=== PATIENT | male | born 1955 | race Caucasian/White ===

== ENCOUNTER 2022-02-25 13:12 | Emergency (ER) | payer MEDICARE, SELFPAY ==
[2022-02-25] VITALS (9 sets, daily range): BP systolic 144–163; BP diastolic 70–85; PULSE 61–76; RESP 32; TEMP 36.4; O2SAT 91–100; BMI 28.0
--- NOTE | 2022-02-25 13:51 | DI.CT.S_ITS ---
PROCEDURE: CT KIDNEY URETER BLADDER (KUB) INDICATIONS: left flank/testicle pain, likely kidney stone TECHNIQUE: Axial sections were acquired from the lung bases to the pubic symphysis. Coronal and sagittal reformats were performed. For radiation dose reduction, the following was used: automated exposure control, adjustment of mA and/or kV according to patient size. COMPARISON: None. FINDINGS: Image quality: Excellent Lower chest: Small hiatal hernia. Small amount of esophageal suspected reflux. Solid organs: Possible steatosis of the liver. No pathologic biliary ductal dilation. Gallbladder is unremarkable. Pancreas is unremarkable. No splenomegaly. No adrenal nodules. No right hydronephrosis. There is an obstructing stone in the left distal ureter adjacent to the UVJ measuring 5 x 4 mm. This stone is calcified. There is moderate upstream hydronephrosis and perinephric periureteral stranding. Vessels and lymph nodes: No abdominal aortic aneurysm or pathologic adenopathy. Bowel and peritoneum: No pathologic ascites or bowel obstruction. There are colonic diverticula. Suspected chronic wall thickening of the sigmoid colon, versus colitis. Body wall: Unremarkable small fat containing umbilical hernia. Pelvis: Prostatomegaly, not well evaluated. Bones: Scattered degenerative changes. No acute or suspicious osseous abnormality. IMPRESSION: Obstructing left distal ureter stone adjacent to the UVJ causing moderate hydronephrosis. Suspected chronic wall thickening related to diverticulosis of the sigmoid colon. Differential includes colitis. Correlate with symptoms and any history of screening colonoscopy. Other findings as above. Dictated by: Erasmo Christensen M.D. on 02/25/2022 at 14:55 Approved by: Erasmo Christensen M.D. on 02/25/2022 at 14:59
[2022-02-25 13:55] LABS: Add Manual Diff / Slide Review NO; Basophils Absolute Auto 100 /uL (0-100); Basophils Percent Auto 0.7 % (0-2); Eosinophils Absolute Auto 200 /uL (0-450); Eosinophils Percent Auto 1.9 % (2-4); Hematocrit 43.2 % (41-53); Hemoglobin 14.7 g/dL (13.5-17.5); Lymphocytes Absolute Auto 2800 /uL (1100-4500); Lymphocytes Percent Auto 34.5 % (25-40); Mean Corpuscular HGB Conc 34.1 % (30-36); Mean Corpuscular Hemoglobin 28.2 PG (26-34); Mean Corpuscular Volume 82.8 fL (80-100); Monocytes Absolute Auto 800 /uL (0-900); Monocytes Percent Auto 9.4 % (3-14); Neutrophils Absolute Auto 4300 /uL (1500-7000); Neutrophils Percent Auto 53.5 % (50-75); Platelet Count 325 X10^3/uL (150-400); Red Blood Cell Count 5.22 X10^6/uL (4.5-5.9); Red Cell Distribution Width 13.5 % (11.6-14.8); White Blood Cell Count 8.1 X10^3/uL (4.5-11.0)
[2022-02-25] MEDS: HYDROMORPHONE 0.5 MG INJ IV ×2 (14:00→14:37)
[2022-02-25] MEDS: ONDANSETRON 4 MG/2 ML INJ IV (14:00)
[2022-02-25] MEDS: KETOROLAC 30 MG/ML VIAL 15 MG IV (14:00)
[2022-02-25] MEDS: SODIUM CHLORIDE 0.9% 1,000 ML 1000 ML IV (14:01)
[2022-02-25 14:06] LABS: Alanine Aminotransferase 34 IU/L (<50); Albumin 4.4 g/dL (3.5-5.0); Albumin Globulin Ratio 1.4 (1.0-2.8); Alkaline Phosphatase 50 U/L (38-126); Aspartate Aminotransferase 26 IU/L (17-59); BUN Creatinine Ratio 13.9 (6-22); Bilirubin Total 0.7 mg/dL (0.2-1.3); Blood Urea Nitrogen 15 mg/dL (9-20); Calcium 9.7 mg/dL (8.4-10.2); Carbon Dioxide 23 mmol/L (22-32); Chloride 104 mmol/L (98-107); Estimated Glomerular Filt Rate > 60 mL/min (>60); Globulin 3.2 g/dL (1.7-4.1); Glucose 115 mg/dL (80-110); HEMOLYSIS < 15 (0-50); Lipase 177 U/L (23-300); Potassium 4.3 mmol/L (3.4-5.1); Sodium 138 mmol/L (137-145); Total Protein 7.6 g/dL (6.3-8.2)
--- NOTE | 2022-02-25 15:31 | ED_ITS ---
HPI - General Adult General Chief complaint: Abdominal Pain Stated complaint: sent by [facility] sharp pain lower LT quad Time Seen by Provider: 02/25/22 13:30 Mode of arrival: Family Vehicle History of Present Illness HPI narrative: 66-year-old gentleman with no significant medical history is traveling [place] country in his motor home with his . His is currently in [place] looking for their new condo when he developed severe left flank, lower quadrant and testicular pain. He was able to drive himself to the hospital and is in obvious severe pain. He is had some episodes of vomiting and retching secondary to the pain. Describes the onset as severe sharp and stabbing. Had no fevers, cough, chills, palpitations, diarrhea. No headaches recently does note years ago he had a kidney stone and is wondering if this may be the same. Related Data Previous Rx's Medication Instructions Recorded oxycodone-acetaminophen 5 mg-325 1 tab PO Q6H PRN pain #14 tabs 02/25/22 mg tablet tamsulosin 0.4 mg capsule 0.4 mg PO DAILY #30 caps 02/25/22 Allergies Allergy/AdvReac Type Severity Reaction Status Date / Time No Known Drug Allergies Allergy Verified 02/25/22 13:36 Review of Systems Review of Systems Narrative: Remainder of complete review of systems is otherwise unremarkable except for that included in the HPI. Patient History Medical History (Updated 02/25/22 @ 15:54 by Maria Eugenia Mcdaniel MD) Kidney stones Social History Smoking Status: Never smoker Smoking Status: Never smoker Substance Use Type: does not use Exam Initial Vital Signs Initial Vital Signs: Vital Signs Temperature 97.6 F 02/25/22 13:35 Pulse Rate 71 02/25/22 13:35 Respiratory Rate 32 H 02/25/22 13:35 Blood Pressure 150/78 H 02/25/22 13:35 Pulse Oximetry 100 02/25/22 13:35 Oxygen Delivery Method 02/25/22 13:35 General: Healthy appearing, in severe pain, mildly diaphoretic but Able to give a complete and coherent history. Well-nourished well-developed HEENT: Moist mucous membranes, normal sclera with reactive pupils, Respiratory: Lungs are clear to auscultation, no wheezing no rales no rhonchi. Full and symmetrical air movement Cardiac: Regular rate and rhythm no murmurs no bruits Abdomen: Soft, mild left flank, left lower quadrant and left testicular pain. No rebound or guarding. No masses or reproducible pain in the testicle. No rashes over the skin. Skin: Warm and dry, no rashes Neurologic: Grossly neurologically intact with no obvious asymmetries or abnor malities Extremities: No trauma, well perfused Psych: Cooperative, appropriate insight and affect Course Orders Ordered: ED Orders 02/25/22 13:37 EKG-12 Lead Stat 02/25/22 13:44 Complete Blood Count AUTO DIFF Stat Comprehensive Metabolic Panel Stat Lipase Stat 02/25/22 13:51 CT kidney ureter bladder (KUB) Stat Hydromorphone HCl (Hydromorphone 0.5 Mg Inj) 0.5 mg IV Q15MIN PRN PRN Reason: Pain, Last Admin: 02/25/22 14:37 Dose: 0.5 mg Documented By: Admin: 02/25/22 14:00 Dose: 0.5 mg Documented By: ROBBIN Discontinued Medications Sodium Chloride (Normal Saline 0.9%) 1,000 mls @ 1,000 mls/hr IV BOLUS ONE Stop: 02/25/22 14:49 Last Admin: 02/25/22 14:01 Dose: 1,000 mls/hr Documented By: ROBBIN Ketorolac Tromethamine (Ketorolac 30 Mg/Ml Vial) 15 mg IV NOW ONE Stop: 02/25/22 13:51 Last Admin: 02/25/22 14:00 Dose: 15 mg Documented By: ROBBIN Ondansetron HCl (Ondansetron 4 Mg/2 Ml Inj) 4 mg IV NOW ONE Stop: 02/25/22 13:51 Last Admin: 02/25/22 14:00 Dose: 4 mg Documented By: ROBBIN Oxycodone/Acetaminophen (Oxycodone/Acetaminophen 5/325 Tablet) 1 tab PO NOW ONE Stop: 02/25/22 15:42 Oxycodone/Acetaminophen (Oxycodone/Apap 5/325 Prepack) 1 bottle MISC SEEINSTR ONE Stop: 02/25/22 15:42 Tamsulosin HCl (Tamsulosin 0.4 Mg Capsule) 0.4 mg PO NOW ONE Stop: 02/25/22 15:43 Vital Signs Vital signs: Vital Signs - 8 hr 02/25/22 13:35 02/25/22 14:09 Temperature 97.6 F Pulse Rate 71 76 Respiratory Rate 32 H Blood Pressure 150/78 H Pulse Oximetry 100 99 Oxygen Delivery Method Room Air Room Air Medical Decision Making Lab Data Result diagrams: 02/25/22 13:44 02/25/22 13:44 Labs: Lab Results 02/25/22 02/25/22 Range/Units 13:44 13:44 WBC 8.1 (4.5-11.0) X10^3/uL RBC 5.22 (4.5-5.9) X10^6/uL Hgb 14.7 (13.5-17.5) g/dL Hct 43.2 (41-53) % MCV 82.8 (80-100) fL MCH 28.2 (26-34) PG MCHC 34.1 (30-36) % RDW 13.5 (11.6-14.8) % Plt Count 325 (150-400) X10^3/uL Neut % (Auto) 53.5 (50-75) % Lymph % (Auto) 34.5 (25-40) % [place] % (Auto) 9.4 (3-14) % Eos % (Auto) 1.9 L (2-4) % Baso % (Auto) 0.7 (0-2) % Neut # (Auto) 4300 (6772-7620) /uL Lymph # (Auto) 2800 (9316-2192) /uL [place] # (Auto) 800 (0-900) /uL Eos # (Auto) 200 (0-450) /uL Baso # (Auto) 100 (0-100) /uL Sodium 138 (137-145) mmol/L Potassium 4.3 (3.4-5.1) mmol/L Chloride 104 (98-107) mmol/L Carbon Dioxide 23 (22-32) mmol/L BUN 15 (9-20) mg/dL Creatinine 1.08 (0.66-1.25) mg/dL Estimated GFR > 60 (>60) mL/min BUN/Creatinine Ratio 13.9 (6-22) Glucose 115 H (80-110) mg/dL Calcium 9.7 (8.4-10.2) mg/dL Total Bilirubin 0.7 (0.2-1.3) mg/dL AST 26 (17-59) IU/L ALT 34 (<50) IU/L Alkaline Phosphatase 50 (38-126) U/L Total Protein 7.6 (6.3-8.2) g/dL Albumin 4.4 (3.5-5.0) g/dL Globulin 3.2 (1.7-4.1) g/dL Albumin/Globulin Ratio 1.4 (1.0-2.8) Lipase 177 (23-300) U/L Imaging Data CT scan - abdomen/pelvis: Radiologist's Impression: FINDINGS:? Image quality:? Excellent ? Lower chest:? Small hiatal hernia.? Small amount of esophageal suspected reflux. ? Solid organs:? Possible steatosis of the liver.? No pathologic biliary ductal dilation.? Gallbladder is unremarkable.? Pancreas is unremarkable.? No splenomegaly.? No adrenal nodules.? No right hydronephrosis. ? There is an obstructing stone in the left distal ureter adjacent to the UVJ measuring 5 x 4 mm.? This stone is calcified.? There is moderate upstream hydronephrosis and perinephric periureteral stranding. ? Vessels and lymph nodes:? No abdominal aortic aneurysm or pathologic adenopathy. ? Bowel and peritoneum:? No pathologic ascites or bowel obstruction.? There are colonic diverticula.? Suspected chronic wall thickening of the sigmoid colon, versus colitis. ? Body wall:? Unremarkable small fat containing umbilical hernia. ? Pelvis:? Prostatomegaly, not well evaluated. ? Bones:? Scattered degenerative changes.? No acute or suspicious osseous abnormality. ? IMPRESSION:? Obstructing left distal ureter stone adjacent to the UVJ causing moderate hydronephrosis. ? Suspected chronic wall thickening related to diverticulosis of the sigmoid colon.? Differential includes colitis.? Correlate with symptoms and any history of screening colonoscopy. Other findings as above. ? Dictated by: Erasmo Christensen M.D. on 02/25/2022 at 14:55 ? ? [facility] Narrative Medical decision making narrative: 66-year-old gentleman with acute onset left sided flank groin testicular pain with CT scan showing an obstructing stone in the left distal ureter adjacent to the UVJ measuring 5 x 4 mm.? Been given fluid, Toradol, single dose of Dilaudid, Zofran and Flomax. Pain is moderately controlled at this point. Be discharged home with a prescription for Flomax and Percocet. Suspect that he will pass this stone that is at the UVJ but if it does not pass he is given information to contact Urology. Anticipated course of resolution as well as complications reviewed with him. At this time he is safe for discharge home Discharge Plan Departure Patient Disposition: Home Clinical Impression: Kidney stone on left side Instructions: DI for Kidney Stones Activity Restrictions/Additional Instructions: Thank you for coming in today You have a fairly good size kidney stone that has worked its way all the way down from your kidney and is almost into her bladder. This is the source of your severe pain today. In the emergency department you are given fluids, Toradol (similar to ibuprofen but IV), IV narcotic and Flomax. Flomax can help expand the tissue enough that the stone will pass a bit more easily. You need to keep well hydrated, there is no specific preventive anything to recommend at this time. Using 400 mg of ibuprofen (2 [id number] pills) and 1 Tylenol every 6 hours can be very helpful in controlling pain. For severe pain using 400 mg of ibuprofen and 1 Percocet will be helpful. I am giving you a prescription for both Percocet as well as Flomax. Please continue the Flomax until you pass the stone. Percocet is a narcotic and will make you constipated. Please use laxatives or stool softeners to prevent this. If your pain is again as severe as when he came in, you will likely need to return to the emergency department. If you have not passed the stone within the next few days, I am going to ask you to follow-up with our Urology Clinic. Please call to schedule an appointment at [phone] If you find that you are getting worse or develop any new symptoms, please feel free to return to the emergency department for further evaluation. Prescriptions: New oxycodone-acetaminophen 5-325 mg tablet 1 tab PO Q6H PRN (Reason: pain) Qty: 14 0RF tamsulosin 0.4 mg capsule 0.4 mg PO DAILY Qty: 30 0RF Referrals: Miscellaneous,Doctor, MD [Primary Care Provider] -
[2022-02-25] MEDS: OXYCODONE/ACETAMINOPHEN 5/325 TABLET 1 TAB PO (15:58)
[2022-02-25] MEDS: OXYCODONE/APAP 5/325 PREPACK 1 BOTTLE MISC (15:58)
[2022-02-25] MEDS: TAMSULOSIN 0.4 MG CAPSULE PO (15:58)
== END 2022-02-25 16:30 | disposition home or self-care (01) ==
PROVIDERS: Emergency Provider Emergency Medicine
DX: N20.0 Calculus of kidney (principal)
CPT/HCPCS: 36415; 74176; 80053; 83690; 85025; 96361; 96374; 96375; 99284; J1170; J1885; J2405

== ENCOUNTER → 2022-03-06 08:22 | Outpatient (CLI) | payer MEDICARE, SELFPAY ==
--- NOTE | 2022-03-06 08:24 | DI.RAD.S_ITS ---
PROCEDURE: XR KUB INDICATIONS: Kidney stone TECHNIQUE: One view of the abdomen acquired. COMPARISON: [facility], CT, CT KIDNEY URETER BLADDER (KUB), 02/25/2022, 13:57. FINDINGS: Surgical changes and devices: None. Bowel: Bowel gas pattern is normal. Soft tissues: Oval 7 mm calcification projecting over the left pelvis could represent the previously seen distal left ureteral calculus on CT KUB from 02/25/2022. Additional phleboliths are seen in the pelvis. Visualized solid organ contours appear normal in size. Bones: No suspicious bony lesions. IMPRESSION: Calcification projecting over the left pelvis could represent the previously seen distal left ureteral calculus. Approved by: Juvencio Irvin M.D. on 03/06/2022 at 16:47
== END ==
PROVIDERS: Referring Provider Urology; Visit Provider Urology
DX: N20.0 Calculus of kidney (principal)
CPT/HCPCS: 74018; 81002; 99214

== ENCOUNTER → 2022-03-15 14:20 | Outpatient (CLI) | payer MEDICARE, SELFPAY ==
--- NOTE | 2022-03-15 14:21 | DI.RAD.S_ITS ---
PROCEDURE: XR KUB INDICATIONS: Kidney stone TECHNIQUE: One view of the abdomen acquired. COMPARISON: [facility], CT, CT KIDNEY URETER BLADDER (KUB), 02/25/2022, 13:57. [facility], CR, XR KUB, 03/06/2022, 8:24. FINDINGS: Surgical changes and devices: None. Bowel: Bowel gas pattern is normal. Soft tissues: No suspicious abdominal calcifications. Visualized solid organ contours appear normal in size. 7 calcification again seen projected over the left hemipelvis unchanged from prior examination. Bones: No suspicious bony lesions. IMPRESSION: 7 mm left hemipelvic calcification redemonstrated which could represent the distal left ureteral stone seen on prior CT KUB. Dictated by: Glenn LEOS Interpreted: Belen Edwards MD on 03/15/2022 at 14:35 Approved by: Obed Murphy M.D. on 03/19/2022 at 12:27
== END ==
PROVIDERS: Referring Provider Urology; Visit Provider Urology
DX: N20.0 Calculus of kidney (principal)
CPT/HCPCS: 74018

== ENCOUNTER → 2022-03-26 13:22 | Outpatient (CLI) | payer MEDICARE, SELFPAY ==
[2022-03-26 14:20] LABS: COVID19 -Nasal RAPID Negative (Negative)
== END ==
PROVIDERS: Visit Provider Urology
DX: Z20.822 Contact with and (suspected) exposure to COVID-19 (principal)
CPT/HCPCS: 87635; C9803

== ENCOUNTER 2022-03-27 14:15 | Day surgery (SDC) | payer MEDICARE, SELFPAY ==
[2022-03-23 10:40] VITALS: BMI 27.8
[2022-03-27] VITALS (10 sets, daily range): BP systolic 123–158; BP diastolic 76–98; PULSE 79–94; RESP 11–16; TEMP 36.1–36.6; O2SAT 92–100; BMI 27.8
--- NOTE | 2022-03-27 | DI.RAD.S_ITS ---
PROCEDURE: XR ABDOMEN 1V INDICATIONS: Left stone and stent placement. TECHNIQUE: 7 intra-operative images acquired by the Urology service. COMPARISON: [facility], CR, XR KUB, 03/15/2022, 15:26. FINDINGS: Multiple intraoperative fluoroscopic images demonstrate placement of double-J left ureteral stent which appears to be appropriately positioned. Oval distal ureteral stone is again noted. IMPRESSION: Fluoroscopic support for left double-J ureteral stent placement. Please see separate procedure note for further details. Dictated by: Kyle Temple M.D. on 03/28/2022 at 10:29 Approved by: Kyle Temple M.D. on 03/28/2022 at 10:31
[2022-03-27] MEDS: LACTATED RINGERS 1,000 ML 21 ML IV (15:09)
--- NOTE | 2022-03-27 15:23 | PM.PREOP ---
Pre-operative Note COVID-19 COVID-19 status: Negative Result date/Date tested (Pos, Neg/Pending): 03/26/22 Criteria for continued procedure: Delay expected to result in less-positive ultimate med/surg outcome and Non-surgical alternatives not available or appropriate per current SOC Interval Note History & Physical reviewed/Exam performed by Physician: Yes Changes to H&P: No
[2022-03-27] MEDS: CEFAZOLIN 2 GM/100 ML PREMIX 100 ML IV (16:02)
--- NOTE | 2022-03-27 16:19 | SUR.OPER ---
Lithotomy on padded OR bed, head on pillow, arms secured on padded arm boards at <90 degrees abduction. Legs secured in padded yellow fins stirrups.
[2022-03-27] MEDS: IOPAMIDOL 50 ML VIAL 10 ML INTRAURETH (16:23)
--- NOTE | 2022-03-27 17:17 | PM.OP.1 ---
Procedure & Clinicians Procedure: Left ureteroscopy with laser lithotripsy and stone basketing as well as left ureteral stent placement. Same procedure as scheduled: Yes Indications: This 66-year-old male presented with complaints of left renal colic. He was found to have a distal 6-7 mm ureteral calculus. He is failed to pass this and presents at this time for treatment of his stone. Interestingly the patient has been pain-free since the 1st episode. Surgeon: Benji Muller Click Yes if Unassisted: Yes Anesthesia Type: General Operative Notes Findings: Findings: Urethra is normal along its length with normal mucosa of the sphincter as well coapted. The prostate shows moderate severe obstructive character with a preponderance of varices. The ureteral orifices were normal position though the left was at the lateral limit of normal. Each had clear efflux. The stone was noted in the distal cm and a half of the ureter. The ureter was otherwise normal within the bladder there were no mucosal lesions or abnormalities. At the end of the procedure a 7 [place] by multi length stent was left in good position in the left collecting system. There was no string his it was removed. Again the patient had varicosities on the prostate and a somewhat elevated bladder neck which foster some bleeding of the vessels which necessitated fulguration of these vessels. Because of this and the potential for swelling and urinary retention an 18 [place] 5 cc Gomez catheter was left in place at the end of the procedure and anticipated remaining in place for approximately 2 days. The stones were sent for pathologic examination. Closure Type: not applicable Specimen(s): other (Stone fragments for compositional analysis (left distal ureteral stone)) Applied: catheter (18 [place] 5 cc Gomez catheter left in place 14 cc in balloon.) and other (Seven [place] by multi length ureteral stent left in left collecting system with no string) Estimated Blood Loss (mL): 15 Blood products transfused: none Procedure in detail: Procedure in detail: After informed consent was obtained, the patient was identified and brought to the operating room. He was placed in the supine position on the table where anesthesia was induced to maintain. Ensuring an adequate level of anesthesia the patient was transitioned to the lithotomy position. Once in lithotomy position he was prepped, draped and prepared in a sterile fashion for Transurethral procedure. After prepping draping, time-out and ensuring an adequate level of anesthesia a 22 [place] 5 cc Gomez catheter was passed through the urethra prostate and into the bladder. Cystoscopy was performed and findings noted. The left ureteral orifice was identified an attempt was made to pass a guidewire. However this deflected off of the stone therefore [place] catheter was inserted impacted in the left ureteral orifice and up to the level of the stone. The guidewire then easily passed the stone and up and into collecting system under fluoroscopic visualization. The scope was backed out and this wire was left in place as a safety wire. The scope was reinserted and a 2nd wire passed up into the collecting system. The bladder was drained and the scope was removed leaving the [address] a 2nd wire being the working wire. A semi-rigid ureteral scope was then passed up to the level of the stone which was nudged slightly cephalad for better visualization. The laser was then inserted and laser energy applied to the stone cutting it into 3 fragments. The laser was placed on standby and the fiber removed and secured. Basket was inserted and the stones were grasped been sequence being pulled out of the ureter and dropped within the bladder. Ureteroscopy was then performed up past the level of vessels to the extent of the semi-rigid ureteral scope no other stones were noted. The ureteral scope was removed and a cystoscope reinserted. There was some clot that was evacuated and the bladder neck and the varicosities were noted to have some ooze and bleeding. Bugbee electrode was inserted and hemostasis was achieved. The fragments were then collected the bladder evacuated and the safety wire backloaded through the cystoscope which was reinserted. The stent was then passed over the wire and a coaxial fashion position in the renal pelvis under fluoroscopic visualization in the bladder under direct vision the nylon harness was removed with the aid of a grasping forceps and the stent was left in good position. It is anticipated that the stent will need to remain in place for 7-10 days given the tightness at the ureteral orifice. This is to allow for any edema to resolve. With the stent in place the bladder was left full and the cystoscope was removed. The 18 [place] 5 cc Gomez catheter was passed through the urethra into the bladder easily the balloon was filled 14 cc of sterile water and placed to gravity drainage. With these in place the patient was awakened having tolerated the procedure well to be transferred to the postanesthesia care unit for recovery. There were no complications. Complications: none Post-operative Condition: stable Disposition: PACU Plan for aftercare: Follow-up in my office 48 hours for voiding trial and then in approximately 10 days for cystoscopy and stent removal.
[2022-03-27] MEDS: OXYBUTYNIN 5 MG TABLET PO (18:14)
[2022-03-27] MEDS: PHENAZOPYRIDINE 100 MG TABLET 200 MG PO (18:14)
--- NOTE | 2022-03-27 18:25 | SUR.PHASEII ---
1825, educated patient on urinary catheter use. Pt demonstrated how to empty and lock catheter drainage spout. Reviewed medications with patient, follow up appointment plans and discharge instructions.
[2022-04-02 09:08] LABS: Ca oxalate dihydrate 10 % (.); Ca oxalate monohydr 90 % (.); Size 5x4 mm (.)
== END 2022-03-27 18:57 | disposition home or self-care (01) ==
PROVIDERS: Referring Provider Urology; Visit Provider Urology
DX: N20.1 Calculus of ureter (principal)
CPT/HCPCS: 52356; 74018; 76000; 82365; J0330; J0690; J1100; J2250; J2405; J2704; J3010

== ENCOUNTER → 2022-04-12 14:20 | Outpatient (CLI) | payer MEDICARE, SELFPAY | PROVIDERS: Visit Provider Urology | DX: N20.1 Calculus of ureter (principal); R31.29 Other microscopic hematuria; R39.9 Unspecified symptoms and signs involving the genitourinary system; Z96.0 Presence of urogenital implants | CPT/HCPCS: 52310; 81002; 87086 ==

== ENCOUNTER → 2022-04-18 12:58 | Outpatient (CLI) | payer MEDICARE, SELFPAY ==
--- NOTE | 2022-04-18 13:02 | DI.RAD.S_ITS ---
PROCEDURE: XR KUB INDICATIONS: kidney stones TECHNIQUE: One view of the abdomen acquired. COMPARISON: [facility], CR, XR KUB, 03/15/2022, 15:26. FINDINGS: Surgical changes and devices: None. Bowel: Bowel gas pattern is normal. Soft tissues: No suspicious abdominal calcifications. Previously seen left pelvic calcification is no longer seen. Visualized solid organ contours appear normal in size. Bones: No suspicious bony lesions. IMPRESSION: Negative examination. Dictated by: Sergio Villa M.D. on 04/18/2022 at 14:58 Transcribed by: SAUL on 04/18/2022 at 14:59 Approved by: Sergio Villa M.D. on 04/18/2022 at 16:32
[2022-04-18 15:19] LABS: Calcium 9.3 mg/dL (8.4-10.2); Uric Acid 6.4 mg/dL (3.5-8.5)
[2022-04-19 10:05] LABS: Parathyroid Hormone Int 46 pg/mL (15-65)
== END ==
PROVIDERS: Referring Provider Urology; Visit Provider Urology
DX: N20.0 Calculus of kidney (principal)
CPT/HCPCS: 36415; 74018; 82310; 83970; 84550

== ENCOUNTER → 2022-12-19 08:19 | Outpatient (CLI) | payer MEDICARE, SELFPAY ==
--- NOTE | 2022-12-19 08:21 | DI.RAD.S_ITS ---
PROCEDURE: XR KUB INDICATIONS: oxalate stones TECHNIQUE: One view of the abdomen acquired. COMPARISON: [facility], CR, XR KUB, 04/18/2022, 13:01. [facility], CR, XR KUB, 03/15/2022, 15:26. FINDINGS: Surgical changes and devices: None. Bowel: Bowel gas pattern is normal. Soft tissues: No suspicious abdominal calcifications. Visualized solid organ contours appear normal in size. Pelvic phleboliths. Bones: No suspicious bony lesions. IMPRESSION: No stones visualized. Dictated by: Amadou Corado M.D. on 12/19/2022 at 9:07 Approved by: Amadou Corado M.D. on 12/19/2022 at 9:09
== END ==
PROVIDERS: Referring Provider Urology; Visit Provider Urology
DX: N20.0 Calculus of kidney (principal); R31.29 Other microscopic hematuria; E83.59 Other disorders of calcium metabolism; R39.9 Unspecified symptoms and signs involving the genitourinary system
CPT/HCPCS: 74018; 99213